=== PATIENT | male | born 1980 | race African-American/Black ===

== ENCOUNTER 2021-03-14 20:01 | Emergency (ER) | payer MEDICAID, OTHER ==
[~2021-03-14] VITALS: Ht 193 cm; Wt 68.9 kg
[2021-03-14] MEDS ORDERED: METHOCARBAMOL 500 MG TAB PO ONE (21:30)
[2021-03-14] MEDS ORDERED: ALPRAZolam 0.25 MG TAB PO ONE (21:30)
[2021-03-14] MEDS ORDERED: HYDROcodone-ACET 10/325MG TAB PO ONE (21:30)
[2021-03-14 23:00] VITALS: BP 135/69
== END 2021-03-14 23:01 | disposition home or self-care (01) ==
LOC: ER 20:01
DX: M79.10 Myalgia, unspecified site (principal); M54.16 Radiculopathy, lumbar region; Z88.8 Allergy status to other drugs, medicaments and biological substances
CPT/HCPCS: 72131